=== PATIENT | female | born 1945 | race Caucasian/White ===

== ENCOUNTER 2017-12-29 15:54 | Emergency (ER) | payer OTHER ==
[~2017-12-29] VITALS: Ht 157.5 cm; Wt 54.4 kg
[2017-12-29 16:14] VITALS: BP 139/61; PULSE 73; RESP 18; TEMP 97.7; O2SAT 98
[2017-12-29] MEDS ORDERED: SIMV20TA PO (17:33)
[2017-12-29] MEDS ORDERED: ASPI-516 CHEW (17:33)
[2017-12-29] MEDS ORDERED: METF1000 PO (17:33)
[2017-12-29] MEDS ORDERED: POLY10O EACH EYE (17:59)
--- NOTE | 2017-12-29 17:59 | PD ---
HPI Chief Complaint: Eye Problems/Injury Time Seen by Provider: 17:35 Travel History International Travel<30 days: No Contact w/Intl Traveler<30days: No Traveled to known affect area: No History of Present Illness HPI The patient is a 72-year-old female who presents to the emergency department for bilateral eye redness, irritation, and drainage. The patient was recently exposed over to her 2 grandchildren who had conjunctivitis. The patient's son then developed conjunctivitis and she now thinks she has similar symptoms. The patient states her symptoms started this morning with some redness to the eyes and now notes purulent drainage from both eyes. She denies any congestion, sneezing, sore throat, or ear pain. She denies any foreign body sensation or change in vision. The patient did have cataract surgery 11 months ago. Symptoms are moderate, exacerbated after she was exposed to conjunctivitis from her grandchildren. PFSH Past Medical History Narrative Medical Diabetes High Cholesterol: Yes Diabetes: Yes Patient Takes Glucophage: Yes Tetanus Vaccination: < 5 Years Influenza Vaccination: Yes ?: Not Menopausal: Yes Past Surgical History Narrative Surgical Parotid gland tumor surgery Cholecystectomy: Yes Social History Alcohol Use: No Tobacco Use: No Substance Use: No Allergies-Medications (Allergen,Severity, Reaction): Coded Allergies: codeine (Verified Allergy, Severe, ABDOMINAL PAIN , 12/29/17) morphine (Verified Allergy, Severe, ABDOMINAL PAIN , 12/29/17) Reported Meds & Prescriptions Reported Meds & Active Scripts Active Reported Simvastatin 20 Mg Tab 20 Mg PO DAILY Aspirin 81 Mg Chew 81 Mg CHEW DAILY Metformin (Metformin HCl) 1,000 Mg Tab 1,000 Mg PO DAILY With a meal Review of Systems Except as stated in HPI: all other systems reviewed are Neg General / Constitutional: No: Fever Eyes: Positive: Drainage, Redness, No: Blurred Vision, Photophobia, Foreign Body Sensation, Pain, Blind Spots, Visual changes, Blindness HENT: No: Headaches, Sore Throat, Rhinitis, Rhinorrhea, Congestion Respiratory: No: Cough Skin: No Rash Physical Exam Narrative GENERAL: Awake, alert, pleasant 72-year-old female who appears her stated age and is in no acute respiratory distress. SKIN: Focused skin assessment warm/dry. HEAD: Atraumatic. Normocephalic. EYES: Pupils equal and round. Pupils are 4 mm bilateral and reactive. EOMs are intact. Mild injection bilaterally. The patient has yellow drainage from the inferior aspect of the right eye. ENT: No nasal bleeding or discharge. Mucous membranes pink and moist. MUSCULOSKELETAL: No obvious deformities. No clubbing. No cyanosis. No edema. NEUROLOGICAL: Awake and alert. No obvious cranial nerve deficits. Motor grossly within normal limits. Normal speech. PSYCHIATRIC: Appropriate mood and affect; insight and judgment normal. Data Data Last Documented VS Vital Signs Date Time Temp Pulse Resp B/P (MAP) Pulse Ox O2 Delivery O2 Flow Rate FiO2 12/29/17 16:14 97.7 73 18 139/61 (87) 98 MDM Medical Decision Making Medical Screen Exam Complete: Yes Emergency Medical Condition: Yes Medical Record Reviewed: Yes Differential Diagnosis Differential diagnosis includes viral conjunctivitis, bacterial conjunctivitis, allergic conjunctivitis, uveitis, iritis, foreign body, corneal abrasion. Narrative Course The patient's history and physical are consistent with conjunctivitis, possibly viral versus bacterial, however, she was exposed to grandchildren with similar symptoms as well as her son with similar symptoms. The patient did have cataract surgery 11 months ago. The patient will be placed on Polytrim eyedrops. She is advised to follow-up with a primary physician and return if symptoms worsen or progress. Diagnosis Primary Impression: Bilateral conjunctivitis Qualified Codes: H10.33 - Unspecified acute conjunctivitis, bilateral Additional Instructions: Frequent handwashing. Clean eyes multiple times daily with a warm washcloth, gently. Eyedrops as directed. Return if symptoms worsen or progress. Med/Other Pt SpecificInfo: Prescription(s) given Scripts Polymyxin B-Trimethoprim Opth Drops (Polytrim Opth Drops) 10,000-0.1 Unit/Ml-% Soln 1 DROP EACH EYE Q6HR for Mgmt Bacterial Infection for 7 Days, #1 BOTTLE 0 Refills Prov: Chaparro Anderson MD 12/29/17 Disposition: 01 DISCHARGE HOME Condition: Stable Chaparro Anderson MD Dec 29, 2017 17:59
== END 2017-12-29 18:11 | disposition home or self-care (01) ==
LOC: NEPD 15:54
DX: H10.33 Unspecified acute conjunctivitis, bilateral (principal); E78.00 Pure hypercholesterolemia, unspecified; E11.9 Type 2 diabetes mellitus without complications; Z79.84 Long term (current) use of oral hypoglycemic drugs
CPT/HCPCS: 99283